=== PATIENT | female | born 1990 | race Caucasian/White ===

== ENCOUNTER 2019-11-06 07:34 | Outpatient (CLI) | payer BC ==
[2019-11-06] VITALS (21 sets, daily range): BP systolic 75–154; BP diastolic 65–102
== END 2019-11-06 23:59 | disposition home or self-care (01) ==
LOC: CARD DIAG 07:34
PROVIDERS: ATTEND Internal Medicine Cardiovascular Disease
DX: R42 Dizziness and giddiness (principal)
CPT/HCPCS: 93660

== ENCOUNTER 2020-10-17 08:11 | Observation (INO) | payer BC ==
[2020-10-09 16:13] LABS: BASOPHILS % (AUTO) 0.4 % (0-1); EOSINOPHILS # (AUTO) 0.1 X10'3 (0-0.9); EOSINOPHILS % (AUTO) 0.9 % (0-6); LYMPHOCYTES # (AUTO) 2.7 X10'3 (1.1-4.8); LYMPHOCYTES % (AUTO) 25.4 % (21-51); MEAN CORPUSCULAR HEMOGLOBIN 29.6 PG (27.0-31.0); MEAN CORPUSCULAR HGB CONC 33.2 g/dL (33.0-36.5); MEAN CORPUSCULAR VOLUME 89.3 FL (78-98); MEAN PLATELET VOLUME 10.6 FL (7.4-10.4); MONOCYTES # (AUTO) 0.6 X10'3 (0-0.9); MONOCYTES % (AUTO) 5.7 % (2-12); NEUTROPHILS # (AUTO) 7.1 X10'3 (1.8-7.7); NEUTROPHILS % (AUTO) 67.6 % (42-75); PRE OP HEMATOCRIT 43.4 % (35.0-45.0); PRE OP HEMOGLOBIN 14.4 g/dL (12.0-16.0); PRE OP PLATELET COUNT 183 X10'3 (140-440); RED BLOOD COUNT 4.86 X10'6 (4.20-5.60)
[2020-10-09 16:15] LABS: CLARITY,URINE CLEAR (Clear); COLOR,URINE YELLOW (Yellow); GLUCOSE, URINE NEGATIVE (Neg); KETONES,URINE NEGATIVE (Neg); LEUKOCYTE ESTERASE ,URINE TRACE (Neg); NITRITES, URINE NEGATIVE (Neg); OCCULT BLOOD,URINE NEGATIVE (Neg); PROTEIN,URINE NEGATIVE (Neg); UROBILINOGEN,URINE 0.2 E.U/dL (0.2-1.0)
[2020-10-09 16:20] LABS: UA COLLECTION TYPE CLN CATCH MIDSTREAM
[2020-10-09 16:30] LABS: ALBUMIN 4.3 G/DL (3.4-5.0); ALBUMIN/GLOBULIN RATIO 1.2 (1.1-1.5); ALKALINE PHOSPHATASE 95 IU/L (46-116); BLOOD UREA NITROGEN 11 MG/DL (7-18); BUN/CREATININE RATIO 17.5 (6.6-38.0); CALCIUM 9.3 MG/DL (8.5-10.1); CHLORIDE 106 MMOL/L (99-107); CREATININE 0.63 MG/DL (0.40-0.90); PRE OP ALT 23 U/L (30-65); PRE OP ANION GAP 11 (8-16); PRE OP AST 12 U/L (10-37); PRE OP BILIRUB, TOTAL 0.3 MG/DL (0.0-1.0); PRE OP GLUCOSE 89 MG/DL (70-104); PRE OP POTASSIUM 3.8 MMOL/L (3.4-5.1); PRE OP SODIUM 142 MMOL/L (135-145); TOTAL CARBON DIOXIDE 25.1 MMOL/L (24-32); eGFR > 90 ML/MIN
[2020-10-09 16:34] LABS: WBC,URINE 0-4 /HPF (0-4)
[2020-10-09 16:35] LABS: BACTERIA,URINE FEW /HPF (Neg); RBC,URINE 0-2 /HPF (0-2); SQUAMOUS EPITHELIAL CELL,UR MANY /LPF (FEW)
[2020-10-09 16:42] LABS: HCG SERUM QL NEGATIVE
[2020-10-09 17:19] LABS: PLATELET ESTIMATE DECREASED
[2020-10-09 17:23] LABS: LARGE PLATELETS FEW
[~2020-10-17] VITALS: Ht 160 cm; Wt 98.2 kg
[2020-10-17] VITALS (22 sets, daily range): BP systolic 120–140; BP diastolic 70–95
[~2020-10-17 08:11] MED LIST: BUPIVAcaine/PF 2.5 mg/ml (0.25%) 30ml vial ONE; NO HOME MEDS; ceFOXitin 2GM-NS 100mL ADDvant 100 ML IV ONE; epiNEPHrine 1 mg/ml inj ONE; famotidine 20mg tablet PO ONE; ringers solution, lacted 1,000 ML IV SCH; vasoPRESSIN 20 units/ml inj. ONE
[2020-10-17] MEDS ORDERED: propofol inj 20 ML IV ONE (10:04)
[2020-10-17] MEDS ORDERED: rocuronium 10mg/ml inj IV ONE (10:04)
[2020-10-17] MEDS ORDERED: fentaNYL /PF 50mcg/ml 5ml ampule ONE (10:05)
[2020-10-17] MEDS ORDERED: midazolam 1 mg/ML 2ml injection ONE (10:05)
[2020-10-17] MEDS ORDERED: dexamethasone sod phosphate 4mg/ml inj. ONE (12:10)
[2020-10-17] MEDS ORDERED: glycopyrrolate 0.2mg/ml inj ONE (12:10)
[2020-10-17] MEDS ORDERED: neostigmine methylsulfate 1 MG/ML 10ml vial ONE (12:10)
[2020-10-17] MEDS ORDERED: ondansetron/PF 4mg/2ml inj ONE (12:10)
[2020-10-17] MEDS ORDERED: LORazepam 2 mg/ml vial IV PRN (12:15)
[2020-10-17] MEDS ORDERED: HYDROcodone/acetaminophen 10/325mg tab PO PRN (12:15)
[2020-10-17] MEDS ORDERED: metoclopramide 5 mg/ml inj IV PRN (12:15)
[2020-10-17] MEDS ORDERED: temazepam 15mg capsule PO PRN (12:15)
[2020-10-17] MEDS ORDERED: ondansetron/PF 4mg/2ml inj IV PRN ×2 (12:15→13:05)
[2020-10-17] MEDS ORDERED: magnesium hydroxide 30ml (MOM) UD suspension PO PRN (12:15)
[2020-10-17] MEDS ORDERED: normal saline 500ml IV soln 500 ML IV PRN (12:15)
[2020-10-17] MEDS ORDERED: diphenhydrAMINE 50 mg/ml inj IV PRN (12:15)
[2020-10-17] MEDS ORDERED: morphine 4 MG/ML inj SYRINge IV PRN (13:05)
[2020-10-17] MEDS ORDERED: morphine 2 MG/ML inj. syringe IV PRN (13:05)
[2020-10-17] MEDS ORDERED: proCHLORperazine 10 MG/2 ml inj IV PRN (13:05)
[2020-10-17] MEDS ORDERED: ringers solution, lacted 1,000 ML IV SCH (13:05)
[2020-10-17] MEDS ORDERED: meperidine/PF 25mg/ml syringe IV PRN ×2 (13:05)
[2020-10-17] MEDS: meperidine/PF 25mg/ml syringe IV PRN ×3 (13:11→14:46)
--- NOTE | 2020-10-17 14:45 | NUR ---
Patient in Recovery room . I have received report from RUBY Daniel and had the opportunity to ask questions and assume patient care.
--- NOTE | 2020-10-17 14:55 | NUR ---
Report called to receiving nurse. Transferred via BED Belongings . Special Issues communicated to receiving nurse. AWAKE AND ORIENTED. VITALS STABLE. DRESSING DI. STATPAIN IMPROVING. TO SURGICAL RM 340A AT THIS TIME.
[2020-10-17] MEDS: ketorolac trometh. 30mg/ml inj. IV PRN ×2 (15:25→21:22)
--- NOTE | 2020-10-17 18:45 | NUR ---
Problems reprioritized. Patient report given, questions answered & plan of care reviewed with RUBY Benítez. Pt A&O x4. c/o minimal pain. eating a regular diet at this time. cont V/S monitoring.
[2020-10-17] MEDS: ringers solution, lacted 1,000 ML IV SCH ×2 (19:08→20:15)
[2020-10-17] MEDS: docusate sod 100mg capsule PO SCH (19:22)
[2020-10-17] MEDS: HYDROcodone/acetaminophen 10/325mg tab PO PRN (19:23)
[2020-10-18] VITALS: BP 133/84
[2020-10-18] MEDS: HYDROcodone/acetaminophen 10/325mg tab PO PRN (02:38)
[2020-10-18 04:00] VITALS: BP 108/66
[2020-10-18] MEDS: ringers solution, lacted 1,000 ML IV SCH ×2 (04:15→04:32)
[2020-10-18 06:13] LABS: BASOPHILS % (AUTO) 0.1 % (0-1); EOSINOPHILS % (AUTO) 0.1 % (0-6); HEMOGLOBIN 13.1 g/dl (12.0-16.0); LYMPHOCYTES # (AUTO) 1.6 X10'3 (1.1-4.8); LYMPHOCYTES % (AUTO) 11.8 % (21-51); MEAN CORPUSCULAR HGB CONC 32.7 g/dL (33.0-36.5); MEAN CORPUSCULAR VOLUME 91.7 FL (78-98); MEAN PLATELET VOLUME 10.4 FL (7.4-10.4); MONOCYTES % (AUTO) 6.9 % (2-12); NEUTROPHILS # (AUTO) 11.3 X10'3 (1.8-7.7); NEUTROPHILS % (AUTO) 81.1 % (42-75); PLATELET COUNT 176 X10'3 (140-440); RED BLOOD COUNT 4.36 X10'6 (4.20-5.60); RED CELL DISTRIBUTION WIDTH 14.3 % (11.5-14.5); WHITE BLOOD COUNT 13.9 X10'3 (4.5-11.0)
--- NOTE | 2020-10-18 06:24 | NUR ---
Problems reprioritized. Patient report given, questions answered & plan of care reviewed with Mary BELTRAN. Addendum: 10/18/20 at 0625 by Lexis Barrett RN Amended: Links added.
--- NOTE | 2020-10-18 06:26 | NUR ---
Patient in room [facility]. I have received report from RUBY Pires and had the opportunity to ask questions and assume patient care.
[2020-10-18 06:34] LABS: ALBUMIN 3.5 G/DL (3.4-5.0); ANION GAP 8 (8-16); BLOOD UREA NITROGEN 9 MG/DL (7-18); BUN/CREATININE RATIO 13.8 (6.6-38.0); CALCIUM 8.7 MG/DL (8.5-10.1); CHLORIDE 108 MMOL/L (99-107); CREATININE 0.65 MG/DL (0.40-0.90); GLUCOSE 116 MG/DL (70-104); POTASSIUM 3.8 MMOL/L (3.5-5.1); SODIUM 142 MMOL/L (135-145); TOTAL CARBON DIOXIDE 25.6 MMOL/L (24-32); eGFR > 90 ML/MIN
[2020-10-18 07:46] VITALS: BP 111/64
[2020-10-18] MEDS: ketorolac trometh. 30mg/ml inj. IV PRN (07:52)
[2020-10-18] MEDS: docusate sod 100mg capsule PO SCH (07:53)
[2020-10-18] MEDS ORDERED: enoxaparin 40mg/0.4ml syringe SQ SCH (08:00)
--- NOTE | 2020-10-18 10:28 | NUR ---
Pt discharged home in stable condition. post void residual 25ml. voiding without discomfort, minimal vaginal bleeding. IV removed. Discharge and follow up instructions given to pt. Pt was escorted to main lobby on W/C, left the hospital via private vehicle accompanied by family member.
== END 2020-10-18 10:30 | disposition home or self-care (01) ==
LOC: PAS 08:11 → SUR 3N 12:51
PROVIDERS: ADMIT Obstetrics & Gynecology Obstetrics; ATTEND Obstetrics & Gynecology Obstetrics
DX: N92.1 Excessive and frequent menstruation with irregular cycle (principal); N94.6 Dysmenorrhea, unspecified; Z20.822 Contact with and (suspected) exposure to COVID-19; D64.9 Anemia, unspecified
CPT/HCPCS: 36415; 58552; 80048; 80053; 81001; 82948; 84703; 85008; 85025; 86885; 86900; 86901; 87081; 96372; 96374; 96375; 96376; G0378; J0171; J0694; J1100; J1885; J2175; J2250; J2405; J2704; J2710; J3010; J3490; J7120; U0003; A4314; A4618; A7000; J1650